=== PATIENT | female | born 1980 | race African-American/Black ===

== ENCOUNTER 2018-08-11 21:45 | Emergency (ER) | payer SELFPAY ==
[~2018-08-11] VITALS: Ht 165.1 cm; Wt 98.0 kg
[2018-08-11] MEDS ORDERED: KETOROLAC 60MG/2ML VIAL IM STA (23:00)
[2018-08-12 00:45] VITALS: BP 126/69
== END 2018-08-12 00:51 | disposition home or self-care (01) ==
LOC: ER 21:45
DX: M25.561 Pain in right knee (principal)
CPT/HCPCS: 73562; 81025; 96372; 99284; J1885